=== PATIENT | male | born 2000 | race Caucasian/White ===

== ENCOUNTER 2024-04-04 08:36 | Emergency (ER) | payer MEDICAID ==
[~2024-04-04] VITALS: Ht 185.4 cm; Wt 64.0 kg
[2024-04-04 08:40] VITALS: BP_SYST 125; PULSE 68; RESP 16; TEMP 97.9; O2SAT 97
[2024-04-04 10:14] LABS: BARBITURATE, URINE NEGATIVE (NEG <=200); BENZODIAZEPINE, URINE NEGATIVE (NEG <=150); CANNABINOID, URINE POSITIVE (NEG <=50); COCAINE, URINE NEGATIVE (NEG <=150); METHAMPHETAMINES SCREEN,URINE NEGATIVE (NEG <=500); OPIATE, URINE NEGATIVE (NEG <=100); PHENCYCLIDINE SCREEN,URINE NEGATIVE (NEG <=25); URINE AMPHETAMINE NEGATIVE (NEG <=500); URINE METHADONE NEGATIVE (NEG <=200); URINE OXYCODONE SCREEN NEGATIVE (NEG <=100)
[2024-04-04 10:15] LABS: UR TRICYCLIC ANTIDEPRESSANTS NEGATIVE (NEG <=300)
[2024-04-04 12:20] VITALS: BP_SYST 122; PULSE 67; RESP 16; TEMP 98.3; O2SAT 99
== END 2024-04-04 12:24 | disposition home or self-care (01) ==
LOC: SED 08:36
DX: M25.512 Pain in left shoulder (principal); M25.551 Pain in right hip; M25.552 Pain in left hip; R63.4 Abnormal weight loss; Z79.899 Other long term (current) drug therapy
CPT/HCPCS: 73030; 73521; 80307; 99284